=== PATIENT | female | born 1945 | race Caucasian/White ===

== ENCOUNTER 2016-07-19 10:37 | Outpatient (CLI) | payer OTHER, MEDICARE ==
--- NOTE | 2016-07-19 11:38 | DIAGNOSTIC IMAGING REPORT ---
PROCEDURE: MG BILATERAL SCREENING W/CAD INDICATION: SCREENING TECHNIQUE: Bilateral CC and MLO digital views. COMPARISON: Compared to 04/21/2015, 04/14/2014, and 01/28/2013. FINDINGS: Computer-aided detection applied. Mildly dense. No change. IMPRESSION: 1. Negative mammogram. RESULT CODE: 1- Negative. A. A negative report should not delay biopsy if a dominant or clinically suspicious mass is present. 10-15% of cancers are not identified by x-ray. B. A negative report may reinforce clinical impression. C. Adenosis and dense breasts may obscure an underlying neoplasm. D. False positive reports average 6-10%. E.. A yearly screening mammogram is recommended. A reminder letter will be scheduled.
== END 2016-07-19 23:00 ==
LOC: MAM SRH 10:37
DX: Z12.31 Encounter for screening mammogram for malignant neoplasm of breast (principal)

== ENCOUNTER 2016-07-27 10:51 | Outpatient (CLI) | payer OTHER, MEDICARE ==
--- NOTE | 2016-07-27 11:26 | DIAGNOSTIC IMAGING REPORT ---
PROCEDURE: DEXA BONE DENSITY STUDY CLINICAL INDICATION: SCREENING FOR OSTEOPOSIS COMPARISON: DEXA 12/12/05 FINDINGS: LUMBAR SPINE: Bone mineral density 1.030 g/cm2, T score -0.2 normal which represents a 0.8% improvement from the previous study LEFT HIP: Bone mineral density 0.997 g/cm2, T score 0.5 normal which represents a of 3.3% decrease from the previous study LEFT FEMORAL NECK: Bone mineral density 0.659 g/cm2, T score -1.7 osteopenia which represents a of 17.3% decrease from the previous study FRACTURE RISK CALCULATION ( when applicable): 10-year fracture risk of a major osteoporotic fracture 9.2% and of a hip fracture 1.3% (T score greater or equal to -1.0 to: NORMAL) (T score from -1.1 to -2.4: OSTEOPENIA) (T score ess than or equal to -2.5: OSTEOPOROSIS) IMPRESSION: 1. Femoral neck osteopenia with a 10-year major fracture risk of 9.2% and a hip fracture risk of 1.3%
== END 2016-07-27 23:00 ==
LOC: XR SRH 10:51
DX: M85.89 Other specified disorders of bone density and structure, multiple sites (principal)